=== PATIENT | male | born 1995 | race Caucasian/White ===

== ENCOUNTER 2017-07-16 20:53 | Emergency (ER) | payer BC ==
[~2017-07-16] VITALS: Ht 167.6 cm; Wt 87.0 kg
[~2017-07-16 20:53] MED LIST: NO HOME MEDICATIONS
[2017-07-16 20:55] VITALS: TEMP 98.1
[2017-07-16 21:58] LABS: BASO # 0.1 (0.0-0.2); BASO % 0.8 % (0.0-2.0); EOS # 0.1 (0.0-0.7); EOS % 1.2 % (0-4.0); HEMATOCRIT 43.5 % (42.0-52.0); HEMOGLOBIN 15.2 g/dl (13.5-18.0); LYMPH # 3.1 (1.2-3.4); LYMPH % 27.7 % (20.0-51.0); MEAN CELL VOLUME 88 fl (80.0-100.0); MEAN CORPUSCULAR HEMOGLOBIN 31 pg (27.0-31.0); MEAN CORPUSCULAR HGB CONC 35 g/dl (33.0-37.0); MEAN PLATELET VOLUME 9.7 fl (7.4-10.4); MONO # 0.8 (0.1-0.6); MONO % 6.9 % (1.7-9.3); PLATELET COUNT 378 K/mm3 (130-400); RED BLOOD COUNT 4.94 M/mm3 (4.20-5.60); REDCELL DISTRIBUTION WIDTH-CV 12.6 % (11.5-14.5); WHITE BLOOD COUNT 11.2 K/mm3 (4.8-10.8)
[2017-07-16 22:08] LABS: ADJUSTED CALCIUM 9.2 mg/dL (8.4-10.2); ALBUMIN 4.3 gm/dL (3.5-5.0); BILIRUBIN,TOTAL 0.4 mg/dL (0.0-1.0); CALCIUM 9.4 mg/dL (8.4-10.2); CREATININE, serum 0.94 mg/dL (0.66-1.25); POTASSIUM 3.6 mmol/L (3.4-5.0); TOTAL PROTEIN 7.5 gm/dL (6.4-8.2)
[2017-07-16 23:17] LABS: PH 6 (5-8); SQUAMOUS EPITHELIAL None Seen /hpf; URINE APPEARANCE Hazy; URINE BACTERIA None Seen /hpf; URINE BILIRUBIN Negative (NEGATIVE); URINE BLOOD 3+ (NEGATIVE); URINE COLOR Yellow; URINE GLUCOSE Negative (NEGATIVE); URINE KETONE Negative (NEGATIVE); URINE RBC >50 /hpf; URINE UROBILINOGEN Negative (NEGATIVE)
[2017-07-17] MEDS ORDERED: FLOMAX 0.40.4 MG/CAP PO (00:05)
[2017-07-17] MEDS ORDERED: PRIMLEV5 PO (00:05)
[2017-07-17 00:22] VITALS: BP 148/88; PULSE 80
== END 2017-07-17 00:22 | disposition home or self-care (01) ==
LOC: COL.ER
PROVIDERS: Nurse Practitioner
DX: N20.0 Calculus of kidney (principal); Z87.442 Personal history of urinary calculi
CPT/HCPCS: J2270; J2405; J7030

== ENCOUNTER 2017-08-05 12:35 | Emergency (ER) | payer BC ==
[~2017-08-05] VITALS: Ht 167.6 cm; Wt 86.4 kg
[~2017-08-05 12:35] MED LIST changes: +FLOMAX 0.40.4 MG/CAP PO; +PRIMLEV5 PO
[2017-08-05 12:38] VITALS: TEMP 97.6
[2017-08-05 13:35] LABS: BASO # 0.1 (0.0-0.2); BASO % 0.7 % (0.0-2.0); EOS # 0.1 (0.0-0.7); EOS % 0.4 % (0-4.0); GRAN # 13.9 (1.4-6.5); HEMATOCRIT 42.7 % (42.0-52.0); LYMPH # 1.5 (1.2-3.4); MEAN CELL VOLUME 88 fl (80.0-100.0); MEAN CORPUSCULAR HEMOGLOBIN 31 pg (27.0-31.0); MEAN CORPUSCULAR HGB CONC 35 g/dl (33.0-37.0); MONO # 1.1 (0.1-0.6); MONO % 6.3 % (1.7-9.3); PLATELET COUNT 421 K/mm3 (130-400); RED BLOOD COUNT 4.87 M/mm3 (4.20-5.60); REDCELL DISTRIBUTION WIDTH-CV 12.8 % (11.5-14.5); WHITE BLOOD COUNT 16.8 K/mm3 (4.8-10.8)
[2017-08-05 14:23] LABS: ADJUSTED CALCIUM 9.3 mg/dL (8.4-10.2); ALBUMIN 4.6 gm/dL (3.5-5.0); BILIRUBIN,TOTAL 0.5 mg/dL (0.0-1.0); CALCIUM 9.8 mg/dL (8.4-10.2); CREATININE, serum 1.14 mg/dL (0.66-1.25); POTASSIUM 4.2 mmol/L (3.4-5.0); TOTAL PROTEIN 7.6 gm/dL (6.4-8.2)
[2017-08-05 14:32] LABS: PH 5 (5-8); SQUAMOUS EPITHELIAL None Seen /hpf; URINE APPEARANCE Clear; URINE BACTERIA None Seen /hpf; URINE BILIRUBIN Negative (NEGATIVE); URINE BLOOD 2+ (NEGATIVE); URINE COLOR Yellow; URINE GLUCOSE Negative (NEGATIVE); URINE KETONE Trace (NEGATIVE); URINE UROBILINOGEN Negative (NEGATIVE); URINE WBC None Seen /hpf
[2017-08-05] MEDS ORDERED: PERCOCET 325 MG1 TA2 PO (14:48)
[2017-08-05] MEDS ORDERED: FLOMAX 0.40.4 MG/CAP PO (14:55)
[2017-08-05] MEDS ORDERED: MOTRIN 800800 MG/TAB PO (14:55)
[2017-08-05 15:01] VITALS: BP 134/78; PULSE 70
== END 2017-08-05 15:02 | disposition home or self-care (01) ==
LOC: COL.ER
PROVIDERS: Physician Assistant
DX: N20.0 Calculus of kidney (principal); Z87.442 Personal history of urinary calculi
CPT/HCPCS: J1885; J2405; J7030

== ENCOUNTER 2017-08-06 13:56 | Day surgery (SDC) | payer BC ==
[~2017-08-06] VITALS: Ht 167.6 cm; Wt 85.7 kg
[2017-08-06] VITALS (7 sets, daily range): BP systolic 99–134; BP diastolic 61–86; PULSE 49–71; TEMP 97.8–98.1
[~2017-08-06 13:56] MED LIST changes: +MOTRIN 800800 MG/TAB PO; +PERCOCET 325 MG1 TA2 PO
== END 2017-08-06 20:30 | disposition home or self-care (01) ==
LOC: SDCO 13:56 → SURG 18:32 → SDCO 20:30
DX: N20.1 Calculus of ureter (principal)
CPT/HCPCS: OP; C1769; J0690; J1100; J1940; J2250; J2405; J2704; J3010; J7120; Q9967

== ENCOUNTER → 2019-09-14 | Outpatient (CLI) | payer BC ==
[~2019-09-14] MED LIST changes: +KEPPRA1000 MG PO; +ZOLOFT 100MG100 MG PO
== END ==
LOC: COL.CARD 12:18
DX: R56.9 Unspecified convulsions (principal)

== ENCOUNTER 2020-05-08 13:46 | Emergency (ER) | payer BC ==
[~2020-05-08] VITALS: Ht 170.2 cm; Wt 90.9 kg
[2020-05-08 13:48] VITALS: TEMP 97.7
[2020-05-08] MEDS ORDERED: OXTELLAR600 PO (13:48)
[2020-05-08 14:12] LABS: COLLECTION METHOD CLEAN CATCH
[2020-05-08 14:18] LABS: BASO # 0.1 (0.0-0.2); BASO % 0.3 % (0.0-2.0); GRAN # 18.8 (1.4-6.5); GRAN % 88.9 % (42.2-75.2); HEMOGLOBIN 15.6 g/dl (13.5-18.0); LYMPH # 0.9 (1.2-3.4); MEAN CELL VOLUME 89 fl (80.0-100.0); MEAN CORPUSCULAR HEMOGLOBIN 31 pg (27.0-31.0); MEAN CORPUSCULAR HGB CONC 35 g/dl (33.0-37.0); MEAN PLATELET VOLUME 9.8 fl (7.4-10.4); MONO # 1.2 (0.1-0.6); MONO % 5.7 % (1.7-9.3); PLATELET COUNT 454 K/mm3 (130-400); RED BLOOD COUNT 5.06 M/mm3 (4.20-5.60); REDCELL DISTRIBUTION WIDTH-CV 13.3 % (11.5-14.5)
[2020-05-08 14:26] LABS: ALBUMIN 4.8 gm/dL (3.5-5.0); ALKALINE PHOSPHATASE 130 U/L (50-136); ANION GAP 14 mmol/L (7-16); AST,SGOT 35 U/L (15-37); BILIRUBIN,TOTAL 0.5 mg/dL (0.0-1.0); BLOOD UREA NITROGEN 19 mg/dL (9-20); CARBON DIOXIDE 20 mmol/L (22-30); CHLORIDE 102 mmol/L (98-107); CREATININE, serum 1.37 (0.66-1.25); GLUCOSE 186 mg/dL (74-106); MAGNESIUM 2.3 mg/dL (1.6-2.3); POTASSIUM 4.7 mmol/L (3.4-5.0); SODIUM 137 mmol/L (137-145); TOTAL PROTEIN 8.3 gm/dL (6.4-8.2)
[2020-05-08 14:32] LABS: ALANINE AMINOTRANSFERASE 29 U/L (4-49); ALCOHOL(ethanol),MEDICAL < 10 mg/dL
[2020-05-08 14:32] LABS: MUCOUS Present /lpf; PH 5 (5-8); SQUAMOUS EPITHELIAL None Seen /hpf; URINE APPEARANCE Cloudy; URINE BACTERIA Rare /hpf; URINE BILIRUBIN Negative (NEGATIVE); URINE BLOOD 2+ (NEGATIVE); URINE COLOR Yellow; URINE GLUCOSE 1+ (NEGATIVE); URINE KETONE Negative (NEGATIVE); URINE LEUKOCYTE ESTERASE Negative (NEGATIVE); URINE NITRATE Negative (NEGATIVE); URINE PROTEIN(semi-quant) 2+ (NEGATIVE); URINE UROBILINOGEN Negative (NEGATIVE)
[2020-05-08 16:45] VITALS: BP 143/65; PULSE 98
== END 2020-05-08 16:45 | disposition home or self-care (01) ==
LOC: COL.ER 13:46
PROVIDERS: Emergency Medicine
DX: G40.909 Epilepsy, unspecified, not intractable, without status epilepticus (principal); F10.129 Alcohol abuse with intoxication, unspecified; Y90.0 Blood alcohol level of less than 20 mg/100 ml
CPT/HCPCS: J2060; J2405; J7030

== ENCOUNTER 2020-06-08 20:08 | Emergency (ER) | payer BC ==
[~2020-06-08] VITALS: Ht 170.2 cm; Wt 86.4 kg
[~2020-06-08 20:08] MED LIST changes: +OXTELLAR600 PO
[2020-06-08 20:23] VITALS: TEMP 97.7
[2020-06-08 21:19] LABS: COLLECTION METHOD CLEAN CATCH
[2020-06-08 21:30] LABS: AMORPHOUS CRYSTAL Present /uL; MUCOUS Present /lpf; PH 5 (5-8); SQUAMOUS EPITHELIAL None Seen /hpf; URINE APPEARANCE Turbid; URINE BACTERIA None Seen /hpf; URINE BILIRUBIN Negative (NEGATIVE); URINE BLOOD 2+ (NEGATIVE); URINE COLOR Yellow; URINE GLUCOSE Negative (NEGATIVE); URINE KETONE Trace (NEGATIVE); URINE LEUKOCYTE ESTERASE Negative (NEGATIVE); URINE NITRATE Negative (NEGATIVE); URINE PROTEIN(semi-quant) 2+ (NEGATIVE); URINE UROBILINOGEN Negative (NEGATIVE)
[2020-06-08 21:34] LABS: HEMATOCRIT 41.9 % (42.0-52.0); HEMOGLOBIN 14.7 g/dl (13.5-18.0); MEAN CELL VOLUME 88 fl (80.0-100.0); MEAN CORPUSCULAR HEMOGLOBIN 31 pg (27.0-31.0); MEAN CORPUSCULAR HGB CONC 35 g/dl (33.0-37.0); MEAN PLATELET VOLUME 9.9 fl (7.4-10.4); PLATELET COUNT 370 K/mm3 (130-400); RED BLOOD COUNT 4.74 M/mm3 (4.20-5.60); REDCELL DISTRIBUTION WIDTH-CV 13.2 % (11.5-14.5)
[2020-06-08 21:37] LABS: TRICYCLIC ANTIDEPRESS URINE NEGATIVE
[2020-06-08 21:51] LABS: BAND 8 % (0-10); LYMPHOCYTE 3 % (20.0-51.0); NEUTROPHILS 85 % (42.0-75.2); PLATELET ESTIMATE NORMAL (NORMAL)
[2020-06-08 22:26] LABS: ALBUMIN 4.8 gm/dL (3.5-5.0); BILIRUBIN,TOTAL 0.5 mg/dL (0.0-1.0); CALCIUM 9.5 mg/dL (8.4-10.2); CREATININE, serum 1.04 (0.66-1.25); TOTAL PROTEIN 8.4 gm/dL (6.4-8.2)
[2020-06-08] MEDS ORDERED: CIPRO 500MG TA500 MG PO ×2 (22:40)
[2020-06-09 02:46] VITALS: BP 121/89; PULSE 74
[2020-06-09] MEDS ORDERED: ZOFRAN 4MG T4 MG/TAB PO (03:23)
[2020-06-10] MEDS ORDERED: KEPPRA1000 MG PO (11:12)
[2020-06-10] MEDS ORDERED: OXTELLAR PO (11:14)
== END 2020-06-09 02:07 | disposition home or self-care (01) ==
LOC: COL.ER 20:08
PROVIDERS: Nurse Practitioner Primary Care
DX: R11.2 Nausea with vomiting, unspecified (principal); R41.0 Disorientation, unspecified; F32.9 Major depressive disorder, single episode, unspecified
CPT/HCPCS: J2060; J2405; J7030

== ENCOUNTER 2020-06-09 03:05 | Inpatient (IN) | payer BC ==
[2020-06-09] VITALS (330 sets, daily range): BP systolic 80–120; BP diastolic 50–80; PULSE 64–91; TEMP 98.2–99; O2SAT 94–100
[~2020-06-09] VITALS: Ht 177.8 cm; Wt 90.6 kg
[~2020-06-09 03:05] MED LIST changes: +CIPRO 500MG TA500 MG PO
[2020-06-09] MEDS ORDERED: ZOFRAN 4MG T4 MG/TAB PO (03:23)
[2020-06-09 04:41] LABS: CSF APPEARANCE CLEAR; CSF COLOR COLORLESS
[2020-06-09 04:42] LABS: CSF RBC 24 /mm3 (0-0)
[2020-06-09 04:43] LABS: CSF APPEARANCE CLEAR; CSF COLOR COLORLESS; CSF RBC < 1 /mm3 (0-0)
[2020-06-09 04:46] LABS: GLUCOSE,CSF 80 mg/dL (40-70); TOTAL PROTEIN,CSF 37 mg/dL (15-45)
--- NOTE | 2020-06-09 04:53 | NUR ---
RECEIVED REPORT FROM JORDAN WHEATLEY IN ER. AWAITING ARRIVAL TO ICU 6.
--- NOTE | 2020-06-09 05:10 | NUR ---
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 PT AMBUALTES TO ICU BED BUT IS UNSTEADY ON FEET AND NEEDS X1 ASSIST. PT APPEARS DROWSY AT THIS TIME BUT IS ABLE TO ANSWER ORIENTATION QUESTIONS APPROPRIATELY, FOLLOW SIMPLE COMMNADS, AND REQUEST CALL BUTTON. PT VERBALIZED UNDERSTANDING. PT IS VERY SLEEPY IS CLENCHES MOUTH CLOSE DWITH TEMPERATURE ATTEMPTED TO BE TAKEN ORALLY AND PULLS COVERS BACK UP WHEN ATTEMPTED AXILLARY. PT PLACED ON BEDSIDE CONTINUOUS MONITOR. BEDALARM PLACED. URINAL WITHIN REACH.
[2020-06-09 05:14] LABS: CSF MONONUCLEAR 40 % (70-100); CSF POLYMORPHONUCLEAR 60 % (0-6)
[2020-06-09 05:19] LABS: CSF POLYMORPHONUCLEAR 40 % (0-6)
[2020-06-09 05:20] LABS: CSF MONONUCLEAR 60 % (70-100)
--- NOTE | 2020-06-09 07:02 | NUR ---
SPOKE TO PT'S MOM AND GAVE HER PASSCODE AND UPDATED HER. PT AWARE THAT HIS MOM BROUGHT HIM IN.
[2020-06-09 11:41] LABS: BASO # 0.1 (0.0-0.2); BASO % 0.3 % (0.0-2.0); EOS % 0.1 % (0-4.0); GRAN # 12.1 (1.4-6.5); GRAN % 79.4 % (42.2-75.2); LYMPH # 1.8 (1.2-3.4); LYMPH % 11.7 % (20.0-51.0); MEAN CELL VOLUME 90 fl (80.0-100.0); MEAN CORPUSCULAR HEMOGLOBIN 31 pg (27.0-31.0); MEAN CORPUSCULAR HGB CONC 34 g/dl (33.0-37.0); MEAN PLATELET VOLUME 10.1 fl (7.4-10.4); MONO # 1.2 (0.1-0.6); MONO % 7.8 % (1.7-9.3); PLATELET COUNT 310 K/mm3 (130-400); RED BLOOD COUNT 4.24 M/mm3 (4.20-5.60); REDCELL DISTRIBUTION WIDTH-CV 13.4 % (11.5-14.5)
[2020-06-09 11:42] LABS: CALCIUM 8.5 mg/dL (8.4-10.2); CREATININE, serum 0.81 (0.66-1.25); POTASSIUM 3.5 mmol/L (3.4-5.0)
--- NOTE | 2020-06-09 20:00 | NUR ---
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 Assessment complete. VS stable. A&Ox3. Denies pain/nausea/shortness of breath. INT to right hand flushes without difficulty. Denies needs. Call light in reach. Will monitor.
[2020-06-10 00:05] VITALS: BP 108/85; PULSE 69; TEMP 98
--- NOTE | 2020-06-10 00:20 | NUR ---
Denies pain/shortness of breath/nausea. Showered this shift. INT to right hand flushes without difficulty. Alcohol withdrawl protocol remains negative. Denies needs. Call light in reach. Will monitor.
[2020-06-10 03:52] VITALS: BP 119/63; PULSE 62; TEMP 97.7
--- NOTE | 2020-06-10 05:16 | NUR ---
Rested well this shift. No c/o shorntess of breath/pain/nausea. Alcohol detox scoring remained 1. Tele NSR. Tolerating PO. Ambulated and showered. INT to right hand flushes without difficulty. Currently resting with eyes closed. Call light in reach. Will monitor.
[2020-06-10 07:27] VITALS: BP 113/67; PULSE 57; TEMP 98.3
--- NOTE | 2020-06-10 08:40 | NUR ---
Patient in bed resting. Alert and oriented x 3. Assessment complete. Denies pain at this time. denies further needs at this time.
[2020-06-10 08:58] LABS: BASO # 0.1 (0.0-0.2); BASO % 0.6 % (0.0-2.0); EOS % 0.4 % (0-4.0); GRAN # 7.3 (1.4-6.5); GRAN % 70.2 % (42.2-75.2); HEMATOCRIT 40.4 % (42.0-52.0); HEMOGLOBIN 14.1 g/dl (13.5-18.0); LYMPH # 2.1 (1.2-3.4); LYMPH % 20.3 % (20.0-51.0); MEAN CELL VOLUME 89 fl (80.0-100.0); MEAN CORPUSCULAR HEMOGLOBIN 31 pg (27.0-31.0); MEAN CORPUSCULAR HGB CONC 35 g/dl (33.0-37.0); MEAN PLATELET VOLUME 10.1 fl (7.4-10.4); MONO # 0.8 (0.1-0.6); MONO % 7.9 % (1.7-9.3); PLATELET COUNT 300 K/mm3 (130-400); RED BLOOD COUNT 4.54 M/mm3 (4.20-5.60); REDCELL DISTRIBUTION WIDTH-CV 13.3 % (11.5-14.5)
--- NOTE | 2020-06-10 11:07 | NUR ---
Dr. Arriola in to see patient.
[2020-06-10] MEDS ORDERED: KEPPRA1000 MG PO (11:12)
[2020-06-10] MEDS ORDERED: OXTELLAR PO (11:14)
[2020-06-10 11:23] VITALS: BP 121/70; PULSE 66; TEMP 98.4
--- NOTE | 2020-06-10 12:35 | NUR ---
Chaplain coronel and offered support with patient.
--- NOTE | 2020-06-10 12:49 | NUR ---
Discharge education provided to patient. Patient to schedule follow up appointment with primary physician. Educated on importance of appointments and taking medication as prescribed. All questions answered. INT discontinued per orders, catheter tip intact. Patient to call when ride is here.
--- NOTE | 2020-06-10 13:05 | NUR ---
Patient ambulated out with surgical staff. No further needs at this time.
== END 2020-06-10 13:00 | disposition home or self-care (01) | DRG 101 ==
LOC: COL.ER 03:05 → ICU 03:42 → SURG 13:51
PROVIDERS: Emergency Medicine; Hospitalist; ADMIT Student in an Organized Health Care Education/Training Program
PROC: 009U3ZX Drainage of Spinal Canal, Percutaneous Approach, Diagnostic (ICD-10-PCS; principal; 2020-06-09)
DX: G40.909 Epilepsy, unspecified, not intractable, without status epilepticus (principal); F32.9 Major depressive disorder, single episode, unspecified; F17.200 Nicotine dependence, unspecified, uncomplicated; F10.20 Alcohol dependence, uncomplicated; F19.10 Other psychoactive substance abuse, uncomplicated
CPT/HCPCS: 99222-AI; 99239; J1953; J3010; J7030

== ENCOUNTER 2020-07-14 11:25 | Emergency (ER) | payer BC ==
[~2020-07-14] VITALS: Ht 175.3 cm; Wt 90.5 kg
[~2020-07-14 11:25] MED LIST changes: +OXTELLAR PO; +ZOFRAN 4MG T4 MG/TAB PO
[2020-07-14 11:30] VITALS: TEMP 97.5
[2020-07-14 11:52] LABS: HEMATOCRIT 43.5 % (42.0-52.0); MEAN CELL VOLUME 91 fl (80.0-100.0); MEAN CORPUSCULAR HEMOGLOBIN 31 pg (27.0-31.0); MEAN CORPUSCULAR HGB CONC 35 g/dl (33.0-37.0); MEAN PLATELET VOLUME 10.2 fl (7.4-10.4); PLATELET COUNT 424 K/mm3 (130-400); REDCELL DISTRIBUTION WIDTH-CV 13.4 % (11.5-14.5)
[2020-07-14 12:05] LABS: ALKALINE PHOSPHATASE 86 U/L (50-136); ANION GAP 20 mmol/L (7-16); AST,SGOT 37 U/L (15-37); BILIRUBIN,TOTAL 0.3 mg/dL (0.0-1.0); BLOOD UREA NITROGEN 14 mg/dL (9-20); CALCIUM 9.1 mg/dL (8.4-10.2); CARBON DIOXIDE 15 mmol/L (22-30); CHLORIDE 106 mmol/L (98-107); CREATININE, serum 0.89 (0.66-1.25); GLUCOSE 159 mg/dL (74-106); POTASSIUM 3.8 mmol/L (3.4-5.0); SODIUM 141 mmol/L (137-145)
[2020-07-14 12:06] LABS: ALCOHOL(ethanol),MEDICAL < 10 mg/dL
[2020-07-14 12:11] LABS: ALANINE AMINOTRANSFERASE 26 U/L (4-49)
[2020-07-14 12:16] LABS: BAND 12 % (0-10); LYMPHOCYTE 6 % (20.0-51.0); NEUTROPHILS 76 % (42.0-75.2)
[2020-07-14 12:17] LABS: PLATELET ESTIMATE NORMAL (NORMAL)
[2020-07-14 12:20] LABS: PROLACTIN 19.2 ng/mL (3.7-17.9)
[2020-07-14] MEDS ORDERED: ONE DAILY MULTI1 TA1 (12:37)
[2020-07-14] MEDS ORDERED: ATIVAN 1MG T1 MG/TAB PO (12:37)
[2020-07-14] MEDS ORDERED: VIMPAT150 MG (12:37)
[2020-07-14 13:58] LABS: COLLECTION METHOD CLEAN CATCH
[2020-07-14 14:05] LABS: MUCOUS Present /lpf; PH 6 (5-8); SQUAMOUS EPITHELIAL 0-2 /hpf; URINE APPEARANCE Hazy; URINE BACTERIA None Seen /hpf; URINE BILIRUBIN Negative (NEGATIVE); URINE BLOOD Negative (NEGATIVE); URINE COLOR Straw; URINE GLUCOSE Negative (NEGATIVE); URINE KETONE Negative (NEGATIVE); URINE LEUKOCYTE ESTERASE Negative (NEGATIVE); URINE NITRATE Negative (NEGATIVE); URINE PROTEIN(semi-quant) Negative (NEGATIVE); URINE RBC None Seen /hpf; URINE UROBILINOGEN Negative (NEGATIVE)
[2020-07-14 14:17] LABS: TRICYCLIC ANTIDEPRESS URINE NEGATIVE
[2020-07-14 21:45] VITALS: BP 112/54; PULSE 78
== END 2020-07-14 21:55 | disposition short-term general hospital (02) ==
LOC: COL.ER 11:25
PROVIDERS: Emergency Medicine
DX: G40.909 Epilepsy, unspecified, not intractable, without status epilepticus (principal)
CPT/HCPCS: J1630; J2060; J2250; J7030; Q2009

== ENCOUNTER 2020-10-07 16:27 | Emergency (ER) | payer BC ==
[~2020-10-07] VITALS: Ht 170.2 cm; Wt 90.9 kg
[~2020-10-07 16:27] MED LIST changes: +ATIVAN 1MG T1 MG/TAB PO; +ONE DAILY MULTI1 TA1; +VIMPAT150 MG
[2020-10-07 16:54] VITALS: TEMP 97.6
[2020-10-07 20:24] LABS: HEMATOCRIT 50.1 % (42.0-52.0); HEMOGLOBIN 16.6 g/dl (13.5-18.0); MEAN CELL VOLUME 94 fl (80.0-100.0); MEAN CORPUSCULAR HEMOGLOBIN 31 pg (27.0-31.0); MEAN CORPUSCULAR HGB CONC 33 g/dl (33.0-37.0); MEAN PLATELET VOLUME 10.4 fl (7.4-10.4); PLATELET COUNT 654 K/mm3 (130-400); RED BLOOD COUNT 5.33 M/mm3 (4.20-5.60); REDCELL DISTRIBUTION WIDTH-CV 13.3 % (11.5-14.5)
[2020-10-07 20:38] LABS: ALBUMIN 5.5 gm/dL (3.5-5.0); BILIRUBIN,TOTAL 0.5 mg/dL (0.0-1.0); CALCIUM 10.6 mg/dL (8.4-10.2); POTASSIUM 3.6 mmol/L (3.4-5.0)
[2020-10-07 21:10] LABS: BAND 3 % (0-10); LYMPHOCYTE 9 % (20.0-51.0); NEUTROPHILS 84 % (42.0-75.2); PLATELET ESTIMATE INCREASED (NORMAL)
[2020-10-07 21:44] LABS: COLLECTION METHOD CLEAN CATCH
[2020-10-07 21:52] LABS: MUCOUS Present /lpf; PH 5 (5-8); SQUAMOUS EPITHELIAL 0-2 /hpf; URINE APPEARANCE Clear; URINE BACTERIA None Seen /hpf; URINE BILIRUBIN Negative (NEGATIVE); URINE BLOOD 2+ (NEGATIVE); URINE COLOR Yellow; URINE GLUCOSE Negative (NEGATIVE); URINE KETONE Trace (NEGATIVE); URINE LEUKOCYTE ESTERASE Negative (NEGATIVE); URINE NITRATE Negative (NEGATIVE); URINE PROTEIN(semi-quant) Negative (NEGATIVE); URINE RBC 20-50 /hpf; URINE UROBILINOGEN Negative (NEGATIVE)
[2020-10-07 22:45] VITALS: BP 134/75; PULSE 133
== END 2020-10-07 23:02 | disposition short-term general hospital (02) ==
LOC: COL.ER 16:27
PROVIDERS: Emergency Medicine
DX: G40.909 Epilepsy, unspecified, not intractable, without status epilepticus (principal); Z87.891 Personal history of nicotine dependence
CPT/HCPCS: J1200; J1630; J2060; J7030; Q2009

== ENCOUNTER 2024-07-15 02:52 | Observation (INO) | payer BC ==
[2024-07-15] VITALS (12 sets, daily range): BP systolic 106–134; BP diastolic 63–90; PULSE 54–82; TEMP 97.7–98.5
[~2024-07-15] VITALS: Ht 170.2 cm; Wt 87.4 kg
[~2024-07-15 02:52] MED LIST changes: -VIMPAT150 MG; +VIMPAT200 MG PO
[2024-07-15] MEDS ORDERED: NS 1,000 ML IV ONE (03:15)
[2024-07-15] MEDS ORDERED: Ondansetron 4 MG/2 ML VIAL IV ONE (03:15)
[2024-07-15] MEDS ORDERED: Mag/Al Hydrox/Simeth Susp 30 ML CUP PO ONE (03:15)
[2024-07-15 03:35] LABS: BASO # 0.1 K/mm3 (0.0-0.2); BASO % 0.3 % (0.0-2.0); EOS # 0.1 K/mm3 (0.0-0.7); EOS % 0.4 % (0.0-4.0); GRAN # 12.7 K/mm3 (1.4-6.5); GRAN % 72.6 % (42.2-75.2); HEMATOCRIT 42.6 % (42.0-52.0); LYMPH # 3.3 K/mm3 (1.2-3.4); LYMPH % 18.7 % (20.0-51.0); MEAN CELL VOLUME 88 fl (80.0-100.0); MEAN CORPUSCULAR HEMOGLOBIN 31 pg (27-31); MEAN CORPUSCULAR HGB CONC 35 g/dl (33.0-37.0); MEAN PLATELET VOLUME 9.3 fl (7.4-10.4); MONO # 1.3 K/mm3 (0.1-0.6); MONO % 7.4 % (1.7-9.3); PLATELET COUNT 452 K/mm3 (130-400); RED BLOOD COUNT 4.82 M/mm3 (4.20-5.60); REDCELL DISTRIBUTION WIDTH-CV 12.5 % (11.5-14.5)
[2024-07-15] MEDS ORDERED: Ketorolac 30 MG/ML VIAL IV ONE (04:00)
[2024-07-15 04:03] LABS: BILIRUBIN,TOTAL 0.4 mg/dL (0.2-1.2); CALCIUM 9.5 mg/dL (8.4-10.2); CREATININE, serum 0.99 mg/dL (0.72-1.25); POTASSIUM 3.9 mEq/L (3.5-4.5); TOTAL PROTEIN 7.2 g/dl (6.2-8.1)
[2024-07-15 04:04] LABS: C-REACTIVE PROTEIN 1.11 mg/dL (0.00-0.50)
[2024-07-15] MEDS ORDERED: Iohexol 300 - 100 ML VIAL IV ONE (04:08)
[2024-07-15] MEDS ORDERED: NS 50 ML IV SCH (04:09)
[2024-07-15] MEDS ORDERED: metroNIDAZOLE 100 ML IV ONE (05:00)
[2024-07-15] MEDS ORDERED: cefTRIAXone 2 G in Water For Injection,Sterile 20 ML IV ONE (05:00)
[2024-07-15] MEDS ORDERED: Morphine 4 MG/ML VIAL IV PRN (05:00)
[2024-07-15] MEDS ORDERED: Ondansetron 4 MG/2 ML VIAL IV PRN ×3 (05:00→17:15)
[2024-07-15] MEDS ORDERED: NS 1,000 ML IV SCH (05:00)
[2024-07-15] MEDS ORDERED: BUSPAR 30MG30 MG/TAB PO (05:05)
[2024-07-15] MEDS ORDERED: LOTREL 10 MG-201 CAP PO (05:05)
[2024-07-15] MEDS ORDERED: LAMICTAL 100MG100 MG PO ×2 (05:07→07:57)
--- NOTE | 2024-07-15 06:26 | NUR ---
patient arrived from ED around 0530, alert and oriented x4. denies chest pain and shortness of breath. ABD pain rated 3/10 in RUQ, states pain at acceptable level. IV in RF is patent, site CDI with NS running at 125 ml/hr. no remarkable skin findings. ambulates with steady gait. aware of NPO status, call light within reach. pt has no further needs, questions, or concerns at this time.
[2024-07-15 06:34] LABS: BASO # 0.1 K/mm3 (0.0-0.2); BASO % 0.5 % (0.0-2.0); EOS # 0.1 K/mm3 (0.0-0.7); EOS % 0.4 % (0.0-4.0); GRAN # 11.3 K/mm3 (1.4-6.5); GRAN % 73.7 % (42.2-75.2); HEMATOCRIT 40.6 % (42.0-52.0); HEMOGLOBIN 14.2 g/dl (13.5-18.0); LYMPH # 2.9 K/mm3 (1.2-3.4); LYMPH % 18.7 % (20.0-51.0); MEAN CELL VOLUME 88 fl (80.0-100.0); MEAN CORPUSCULAR HEMOGLOBIN 31 pg (27-31); MEAN CORPUSCULAR HGB CONC 35 g/dl (33.0-37.0); MEAN PLATELET VOLUME 9.5 fl (7.4-10.4); MONO % 6.2 % (1.7-9.3); PLATELET COUNT 426 K/mm3 (130-400); REDCELL DISTRIBUTION WIDTH-CV 12.6 % (11.5-14.5)
[2024-07-15] MEDS ORDERED: VIMPAT50 MG PO (07:54)
[2024-07-15] MEDS ORDERED: LAMICTAL 25MG T25 MG PO (07:56)
--- NOTE | 2024-07-15 08:00 | NUR ---
PATIENT RESTING IN BED. ALERT AND ORIENTED. PATIENT REMAINS NPO AT THIS TIME. THIS RN INFORMED PATIENT OF UPCOMING SURGERY. PATIENT INQUIRING ABOUT ANTISEIZURE MEDICATIONS. THIS RN LEFT A MESSAGE TO DR SALOMON.
[2024-07-15] MEDS ORDERED: lamoTRIgine 100 MG TAB PO SCH (09:18)
--- NOTE | 2024-07-15 09:23 | NUR ---
concrete worker met with pt to discuss intake information. He reports to alone in [place]. He sees Dr. Green for PCP needs and obtains medications from [facility] with no difficulties. He confirmed his insurance as [employer]. He reports his mother, Kirstin [phone] and father, Kevin as his NOK/contacts. He does not have a DPOA-HC and declined one. He is independent with ADLS and uses no DME. Pt has no further needs. Discharge Plan: home
--- NOTE | 2024-07-15 09:33 | NUR ---
PHONE ORDER RECEIVED FROM DR SALOMON TO GIVE DAILY ANTISEIZURE MEDICATIONS. WILL ADMINISTER WITH SIP OF WATER
[2024-07-15] MEDS ORDERED: LR 1,000 ML IV SCH (10:30)
--- NOTE | 2024-07-15 11:42 | NUR ---
D: Pressed Or Blown Glass Worker stopped by room on rounds. A: Pt was resting and content. Pt has no needs right now. 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 Pressed Or Blown Glass Worker will follow up as needed.
[2024-07-15] MEDS ORDERED: HYDROmorphone 1 MG/1 ML SYRINGE [PACU/SDC ONLY] IV PRN (15:30)
[2024-07-15] MEDS ORDERED: Meperidine 50 MG/ML 1 ML VIAL IV PRN (15:30)
[2024-07-15] MEDS ORDERED: fentaNYL 50 MCG/ML 1 ML SYRINGE/VIAL [PACU/SDC ONLY] IV PRN (15:30)
[2024-07-15] MEDS ORDERED: droPERidol 2.5 MG/ML 2 ML VIAL IV PRN (15:30)
[2024-07-15] MEDS ORDERED: fentaNYL 50 MCG/ML 5 ML VIAL ONE (15:32)
[2024-07-15] MEDS ORDERED: Lidocaine PF 2% (20 MG/ML) 5 ML VIAL ONE ×2 (15:32→17:08)
[2024-07-15] MEDS ORDERED: Atracurium 50 MG/5 ML VIAL IV ONE (15:33)
[2024-07-15] MEDS ORDERED: Ondansetron 4 MG/2 ML VIAL ONE (15:34)
[2024-07-15] MEDS ORDERED: dexAMETHasone 10 MG/ML VIAL ONE (15:34)
--- NOTE | 2024-07-15 15:35 | NUR ---
PATIENT DOWN TO SURGERY AT APPROX 1540. ALERT AND ORIENTED.
[2024-07-15] MEDS ORDERED: NORCO 325 MG-51 TAB PO (16:12)
[2024-07-15] MEDS ORDERED: Ketorolac 30 MG/ML VIAL ONE (16:26)
[2024-07-15] MEDS ORDERED: Glycopyrrolate 0.2 MG/ML 1 ML VIAL ONE (16:27)
[2024-07-15] MEDS ORDERED: Ibuprofen 600 MG TAB PO PRN (17:15)
--- NOTE | 2024-07-15 17:47 | NUR ---
PATIENT BACK FROM PACU AT APPROX 1745. PATIENT IS AWAKE, ALERT, AND ORIENTED. VSS. PATIENT BREATHING ON ROOM AIR. DENIES PAIN OR DISCOMFORT AT THIS TIME. X3 LAP SITES TO RIGHT SIDE OF ABDOMEN ARE CDI, COVERED WITH BANDAIDS. POST OP VS INITIATED. WILL CONT TO MONITOR
--- NOTE | 2024-07-15 23:03 | NUR ---
patient lying in bed, alert and oriented x4. ambulates with steady gait, voided and tolerated evening meal. vitals stable, mom at bedside for transportation. pain rated 4/10, per pt request norco provided. IV in RAC discontinued. ABD incision sites x3 CDI with bandaid. discharge eduacation provided. pt has noo further needs, questions or concerns at this time. pt refused wheelchair for escort, PCT to escort pt and family at 2049 for discharge.
== END 2024-07-15 20:50 | disposition home or self-care (01) ==
LOC: COL.ER 02:52 → SURG 04:59
PROVIDERS: Emergency Medicine; ADMIT Surgery
DX: K35.80 Unspecified acute appendicitis (principal); I10 Essential (primary) hypertension; Z79.899 Other long term (current) drug therapy
CPT/HCPCS: G0378; J0696; J1100; J1836; J1885; J2405; J2704; J3010; J7030; Q9967